=== PATIENT | female | born 1945 | race Two or more races ===

== ENCOUNTER 2017-03-31 02:59 | Inpatient (IN) | payer SELFPAY ==
[~2017-03-31] VITALS: Ht 165.1 cm; Wt 76.7 kg
[~2017-03-31 02:59] MED LIST: ASPI325T8 PO; CAPT25TA3 PO; PANT40TA5 PO; PENT400T2 PO; SUCR1TAB PO
--- NOTE | 2017-03-31 03:40 | PHYS DOC ---
Past Medical History Past Medical History: Anxiety, Cancer, GERD, Hypertension Additional Past Medical Histor: Uterine Cancer; Colitis Past Surgical History: Cholecystectomy, Hysterectomy Additional Past Surgical Histo: Hernia Alcohol Use: None Drug Use: None Adult General Chief Complaint Chief Complaint: ABDOMINAL PAIN HPI HPI Patient is a 71 year old female who presents with complaint of abdominal pain. The patient's symptoms have been worsening over the past 24 hours. The patient was recently admitted to the hospital on March 24, 2017 for treatment of what appeared to be a small bowel obstruction. After further testing, the patient was diagnosed with ileus and did not require surgical intervention. The patient' s symptoms had improved and patient was discharged on March 28, 2017. Patient states that she has had 4 episodes of vomiting today. Patient did have a bowel movement approximately one and half hours prior to arrival but states this did not help her symptoms. Patient states that the pain is throughout her abdomen but is worse in the epigastric and periumbilical areas of her belly. Patient has not taken any medications to help with her symptoms at this time. Patient rates her pain currently is 10 out of 10. Review of Systems Review of Systems Constitutional: Denies fever or chills [] Eyes: Denies change in visual acuity, redness, or eye pain [] HENT: Denies nasal congestion or sore throat [] Respiratory: Denies cough or shortness of breath [] Cardiovascular: Denies chest pain or edema[] GI: Abdominal pain, nausea, vomiting[] : Denies dysuria or hematuria [] Musculoskeletal: Denies back pain or joint pain [] Integument: Denies rash or skin lesions [] Neurologic: Denies headache, focal weakness or sensory changes [] Current Medications Current Medications Current Medications Medications (Trade) Dose Ordered Sig/[facility] Start Time Stop Time Status Last Admin Dose Admin Famotidine (Pepcid) 20 mg 1X ONCE 03/31/17 03:45 03/31/17 03:46 DC 03/31/17 03:59 20 MG Fentanyl Citrate (Fentanyl 2ml Vial) 50 mcg PRN Q15MIN PRN 03/31/17 03:45 04/01/17 03:44 03/31/17 03:59 50 MCG Ondansetron HCl (Zofran) 4 mg 1X ONCE 03/31/17 03:45 03/31/17 03:46 DC 03/31/17 03:58 4 MG Sodium Chloride 1,000 ml @ 1,000 mls/hr Q1H 03/31/17 03:45 03/31/17 04:44 DC 03/31/17 03:58 1,000 MLS/HR Allergies Allergies Allergies Coded Allergies Type Severity Reaction Last Updated Verified No Known Drug Allergies 03/24/17 No Physical Exam Physical Exam Constitutional: Alert, afebrile, appears ill. [] HENT: Normocephalic, atraumatic, bilateral external ears normal, oropharynx moist, no oral exudates, nose normal. [] Eyes: PERRLA, EOMI, conjunctiva normal, no discharge. [] Neck: Normal range of motion, no tenderness, supple, no stridor. [] Cardiovascular:Heart rate regular rhythm, no murmur [] Lungs & Thorax: Bilateral breath sounds clear to auscultation [] Abdomen: Bowel sounds normal, soft, epigastric and periumbilical tenderness to palpation, mild guarding, no rebound tenderness, no masses, no pulsatile masses. [] Skin: Warm, dry, no erythema, no rash. [] Back: No tenderness, no CVA tenderness. [] Extremities: No tenderness, no cyanosis, no clubbing, ROM intact, no edema. [] Neurologic: Alert and oriented X 3, normal motor function, normal sensory function, no focal deficits noted. [] Current Patient Data Vital Signs Vital Signs Date Time Temp Pulse Resp B/P (MAP) Pulse Ox O2 Delivery O2 Flow Rate FiO2 03/31/17 03:30 82 21 180/85 (116) 99 Room Air 03/31/17 03:10 98.2 98.2 Lab Values Laboratory Tests Test 03/31/17 03:40 03/31/17 04:32 White Blood Count 11.0 x10^3/uL (4.0-11.0) Red Blood Count 4.77 x10^6/uL (3.50-5.40) Hemoglobin 13.6 g/dL (12.0-15.5) Hematocrit 40.6 % (36.0-47.0) Mean Corpuscular Volume 85 fL (79-100) Mean Corpuscular Hemoglobin 29 pg (25-35) Mean Corpuscular Hemoglobin Concent 34 g/dL (31-37) Red Cell Distribution Width 15.4 % (11.5-14.5) H Platelet Count 242 x10^3/uL (140-400) Neutrophils (%) (Auto) 83 % (31-73) H Lymphocytes (%) (Auto) 11 % (24-48) L Monocytes (%) (Auto) 4 % (0-9) Eosinophils (%) (Auto) 1 % (0-3) Basophils (%) (Auto) 1 % (0-3) Neutrophils # (Auto) 9.1 x10^3uL (1.8-7.7) H Lymphocytes # (Auto) 1.2 x10^3/uL (1.0-4.8) Monocytes # (Auto) 0.5 x10^3/uL (0.0-1.1) Eosinophils # (Auto) 0.1 x10^3/uL (0.0-0.7) Basophils # (Auto) 0.1 x10^3/uL (0.0-0.2) Sodium Level 141 mmol/L (136-145) Potassium Level 3.7 mmol/L (3.5-5.1) Chloride Level 103 mmol/L (98-107) Carbon Dioxide Level 26 mmol/L (21-32) Anion Gap 12 (6-14) Blood Urea Nitrogen 18 mg/dL (7-20) Creatinine 0.9 mg/dL (0.6-1.0) Estimated GFR (Cockcroft-Gault) 61.5 BUN/Creatinine Ratio 20 (6-20) Glucose Level 146 mg/dL (70-99) H Calcium Level 9.7 mg/dL (8.5-10.1) Total Bilirubin 0.8 mg/dL (0.2-1.0) Aspartate Amino Transferase (AST) 24 U/L (15-37) Alanine Aminotransferase (ALT) 65 U/L (14-59) H Alkaline Phosphatase 125 U/L (46-116) H Total Protein 8.0 g/dL (6.4-8.2) Albumin 3.7 g/dL (3.4-5.0) Albumin/Globulin Ratio 0.9 (1.0-1.7) L Lipase 153 U/L (73-393) Urine Collection Type Unknown Urine Color Yellow Urine Clarity Clear Urine pH 6.0 Urine Specific [place] 1.020 Urine Protein Negative mg/dL (NEG-TRACE) Urine Glucose (UA) Negative mg/dL (NEG) Urine Ketones (Stick) Negative mg/dL (NEG) Urine Blood Negative (NEG) Urine Nitrite Negative (NEG) Urine Bilirubin Negative (NEG) Urine Urobilinogen Dipstick 0.2 mg/dL (0.2 mg/dL) Urine Leukocyte Esterase Moderate (NEG) Urine RBC Occ /HPF (0-2) Urine WBC 20-40 /HPF (0-4) Urine Squamous Epithelial Cells Mod /LPF Urine Bacteria Moderate /HPF (0-FEW) Urine Mucus Marked /LPF Laboratory Tests 03/31/17 03:40 Laboratory Tests 03/31/17 03:40 EKG EKG Interpreted by me: Heart rate 85, sinus rhythm, normal intervals, normal axis, no acute ST/T-wave abnormalities present[] Radiology/Procedures Radiology/Procedures 3 view acute abdominal series interpreted by me: No infiltrates, no effusions, normal cardiac silhouette, nonobstructive bowel gas pattern, no free air under the diaphragm[] Course & Med Decision Making Course & Med Decision Making Pertinent Labs and Imaging studies reviewed. (See chart for details) Patient given IV fluids, fentanyl, Zofran, and Pepcid. Patient had temporary improvement in symptoms, however she states she is having recurrence of nausea and pain at this time. Patient unable to tolerate any by mouth intake. Patient was found have evidence of urinary tract infection no edema feel this is the sole cause of the patient's symptoms. It is likely at the patient is having recurrence of ileus. Patient started on Rocephin for treatment of urinary tract infection. The patient will require admission to the hospital for further management. Patient admitted to Dr. Bradford. Montez Disclaimer Montez Disclaimer This electronic medical record was generated, in whole or in part, using a voice recognition dictation system. Departure Departure Impression: Primary Impression: Intractable nausea and vomiting Additional Impressions: Urinary tract infection Generalized abdominal pain Disposition: ADMITTED INPATIENT Admitting Physician: Valentín Bradford Condition: STABLE Referrals: NO PCP (PCP) Problem Qualifiers Primary Impression: Intractable nausea and vomiting Vomiting type: unspecified Qualified Codes: R11.2 - Nausea with vomiting, unspecified Additional Impressions: Urinary tract infection Urinary tract infection type: site unspecified Hematuria presence: without hematuria Qualified Codes: N39.0 - Urinary tract infection, site not specified TIFFANY ALMENDAREZ MD Mar 31, 2017 03:40
[2017-03-31] MEDS ORDERED: FAMOTIDINE 20 MG/2 ML VIAL IVP ONE (03:45)
[2017-03-31] MEDS ORDERED: IV NORMAL SALINE 1000ML BAG 1,000 ML IV SCH (03:45)
[2017-03-31] MEDS ORDERED: ONDANSETRON PF 4 MG/2 ML VIAL. IV ONE ×2 (03:45→06:00)
[2017-03-31 03:46] LABS: BASO # 0.1 x10^3/uL (0.0-0.2); BASO % 1 % (0-3); EOS % 1 % (0-3); HEMATOCRIT 40.6 % (36.0-47.0); HEMOGLOBIN 13.6 g/dL (12.0-15.5); LYMPH # 1.2 x10^3/uL (1.0-4.8); LYMPH % 11 % (24-48); MEAN CORPUSCULAR HEMOGLOBIN 29 pg (25-35); MEAN CORPUSCULAR HGB CONC 34 g/dL (31-37); MEAN CORPUSCULAR VOLUME 85 fL (79-100); MONO % 4 % (0-9); NEUT % 83 % (31-73); PLATELET COUNT 242 x10^3/uL (140-400); RED BLOOD COUNT 4.77 x10^6/uL (3.50-5.40); RED CELL DISTRIBUTION WIDTH 15.4 % (11.5-14.5)
[2017-03-31 03:58] LABS: CALCIUM 9.7 mg/dL (8.5-10.1); CREATININE 0.9 mg/dL (0.6-1.0); GFR 61.5; POTASSIUM 3.7 mmol/L (3.5-5.1)
[2017-03-31] MEDS: fentaNYL PF VIAL 100 MCG/2 ML VIAL IV PRN ×3 (03:59→08:49)
[2017-03-31 04:04] LABS: ALBUMIN 3.7 g/dL (3.4-5.0); ALBUMIN/GLOBULIN RATIO 0.9 (1.0-1.7); TOTAL BILIRUBIN 0.8 mg/dL (0.2-1.0)
[2017-03-31 04:44] LABS: BILIRUBIN,URINE NEGATIVE (NEG); GLUCOSE,URINE NEGATIVE (NEG); NITRITE,URINE NEGATIVE (NEG); PROTEIN,URINE NEGATIVE (NEG-TRACE); UROBILINOGEN,URINE 0.2 mg/dL (0.2 mg/dL)
[2017-03-31 05:06] LABS: BACTERIA,URINE MODERATE /HPF (0-FEW); RBC,URINE OCC /HPF (0-2); SQUAMOUS EPITHELIAL CELL,UR MOD /LPF; WBC,URINE 20-40 /HPF (0-4)
[2017-03-31 07:50] VITALS: BP 148/62
--- NOTE | 2017-03-31 07:50 | RAD ---
Acute abdomen series with chest, 03/31/2017: History: Abdominal pain There is mild gaseous prominence of a small bowel loop in the central abdomen. There is an overall paucity of bowel gas in the abdomen. There is a small amount of stool in the colon. There is a small amount of gas in the stomach. No free air seen in the abdomen. There is no evidence of organomegaly. The heart size and pulmonary vascularity are normal. The lungs are clear. There is no evidence of pleural fluid. IMPRESSION: There is a paucity of bowel gas in the abdomen with only mild gaseous prominence of a single small bowel loop centrally. The findings raise the possibility of small bowel obstruction or ileus. Vomiting may be contributing to this appearance.
[2017-03-31 11:36] VITALS: BP 140/60
--- NOTE | 2017-03-31 12:29 | EKG ---
[facility] [address] [place] [address] Test Date: 2017-03-31 Test Time: 03:48:09 Pat Name: BABAK KUMAR Department: Room: Gender: F Can Solderer: : 1945 Requested By: TIFFANY ALMENDRAEZ Order Number: [id number] Reading MD: Measurements Intervals [place] Rate: 85 P: 42 DE: 146 QRS: 17 QRSD: 78 T: 38 QT: 376 QTc: 453 Interpretive Statements SINUS RHYTHM NORMAL ECG RI6.01 No previous ECG available for comparison
[2017-03-31] MEDS ORDERED: METOCLOPRAMIDE HCL 10 MG/2 ML VIAL. IV PRN (12:30)
[2017-03-31] MEDS: KETOROLAC 15 MG/ML VIAL. IV PRN (13:23)
[2017-03-31 14:50] VITALS: BP 130/40
[2017-03-31 19:00] VITALS: BP 155/74
--- NOTE | 2017-03-31 19:09 | RAD ---
Indication: NG tube placement. Time of exam 5:49 PM There is an NG tube noted in the distal esophagus. NG tube is coiled back upon itself with tip directed retrograde. [place] of the loop is located at the GE junction. IMPRESSION: Malpositioned NG tube which is looped upon itself with tip directed retrograde in the mid thoracic esophagus. Electronically signed by: Lui Traylor MD (03/31/2017 7:06 PM) [facility]
--- NOTE | 2017-03-31 20:10 | RAD ---
Indication: NG tube placement. Time of exam 7:45 PM An NG tube passes below the diaphragm. The tip is likely located within the distal stomach. IMPRESSION: NG tube placement, as described. Electronically signed by: Lui Traylor MD (03/31/2017 8:07 PM) [facility]
[2017-03-31] MEDS ORDERED: BENZOCAINE ONE 20% MUCOSAL SPRAY. MM PRN (22:00)
[2017-03-31] MEDS: hydrALAZINE 20 MG/ML VIAL. IVP PRN (22:06)
[2017-03-31] MEDS: METOCLOPRAMIDE HCL 10 MG/2 ML VIAL. IV SCH (22:07)
[2017-03-31] MEDS: POTASSIUM CHLORIDE 30 MEQ in IV 1/2 NORMAL SALINE 1,000 ML IV SCH (22:16)
[2017-03-31] MEDS: PHENOL ORAL SPRAY 177ML BOTTLE. PO PRN (22:16)
--- NOTE | 2017-03-31 22:55 | HP ---
ADMIT DATE: 03/31/2017 CHIEF COMPLAINT: Abdominal pain. HISTORY OF PRESENT ILLNESS: The patient is a 71-year-old who presented to the Emergency Room with severe abdominal pain over the past 24 hours. Of note, she actually had been discharged on 03/28/2017 after a 5-day hospitalization for essentially same presentation, which was diagnosed as a small-bowel obstruction by CT. She improved at that time spontaneously, did not require any surgical intervention, but once again is now back. She denies any fevers or chills. Denies any unusual foods. Denies any diarrhea. She did have four episodes of vomiting today, had a bowel movement just prior to coming to the Emergency Room. Neither evacuation gave her any relief of the abdominal pain. Pain is worse in the periumbilical area. She does have a history of hiatal hernia and is wondering if this is related. She also has a history of TAHBSO for ovarian carcinoma in 2011. PAST MEDICAL HISTORY: Ovarian CA status post resection and radiation treatment in 2012, hypertension, colitis (radiation), cholecystectomy, hysterectomy, and GERD/hiatal hernia. FAMILY HISTORY: No other cancers. No known GI disorders. SOCIAL HISTORY: Lives with her family. No toxic habits. ALLERGIES: No known drug allergies. MEDICATIONS: MAR reviewed. The patient currently n.p.o. REVIEW OF SYSTEMS: Positive as per HPI. The patient complains of sore throat after placement of NG tube. Abdominal pain seems to be somewhat improved. Rest of organ system review is negative. PHYSICAL EXAMINATION: VITAL SIGNS: From today show a blood pressure of 140/60, heart rate of 67, respiratory rate at 20. She is afebrile. GENERAL: This is a well-nourished 71-year-old , alert and oriented, in mild discomfort due to odynophagia. HEENT: Shows no scleral icterus. NECK: Supple, without any palpable lymphadenopathy. LUNGS: Clear to auscultation bilaterally. HEART: Regular rate and rhythm. ABDOMEN: Has positive bowel sounds, soft, minimal tenderness to palpation in the periumbilical area. Midline incision is well healed. EXTREMITIES: Show no edema. SKIN: Warm, soft and dry without any rash. LABORATORY DATA: CBC from today shows a WBC of 11.0, hemoglobin 13, platelets of 242. Chemistries with a BUN and creatinine of 18 and 0.9, normal electrolytes. LFTs with an ALT of 65, which is new for her. Alkaline phosphatase minimally elevated at 125 as previously as well. Albumin at 3.7. Urine with 20-40 WBC and moderate bacteria. IMAGING STUDIES: Acute abdomen series shows "paucity" of bowel gas in the abdomen with only mild gaseous prominence in a single small bowel loop centrally, findings raised the possibility of a small-bowel obstruction or ileus. ASSESSMENT AND PLAN: The patient is a 71-year-old with apparently recurrent ileus. Etiology is somewhat unclear. We will treat her symptomatically for now. With ongoing nausea, vomiting, NG tube was placed, but is not yielding any fluids. This apparently was a difficult insertion with some blood in the tube. The patient is feeling a bit better at this time. She has been started on Reglan around the clock. We will try and avoid any constipatory medications including Zofran as possible. Pain control currently is adequate. The patient does have hypertension. With n.p.o. status, we will switch her to hydralazine p.r.n., as her blood pressure currently is borderline. We will continue to monitor. She does have a diagnosis of osteoarthritis. We will treat pain with IV medications including Toradol as needed. The patient is on pentoxifylline although I am not sure that family is aware of what the medication is. She does not describe any claudication symptoms to me. We will hold medications for the time being as it can contribute to nausea. If patient's symptoms do not improve, we will obtain surgical consult in a.m. CRAIG DODD MD DR: FELICITY/nts JOB#: [id number] / [id number] MARLON
[2017-03-31 23:00] VITALS: BP 114/58
[2017-04-01 03:00] VITALS: BP 103/51
[2017-04-01 03:49] LABS: BASO % 0 % (0-3); EOS % 1 % (0-3); HEMATOCRIT 33.6 % (36.0-47.0); HEMOGLOBIN 11.3 g/dL (12.0-15.5); LYMPH # 0.7 x10^3/uL (1.0-4.8); LYMPH % 15 % (24-48); MEAN CORPUSCULAR HEMOGLOBIN 29 pg (25-35); MEAN CORPUSCULAR HGB CONC 34 g/dL (31-37); MEAN CORPUSCULAR VOLUME 85 fL (79-100); MONO % 10 % (0-9); NEUT % 74 % (31-73); PLATELET COUNT 217 x10^3/uL (140-400); RED BLOOD COUNT 3.94 x10^6/uL (3.50-5.40); RED CELL DISTRIBUTION WIDTH 15.3 % (11.5-14.5); WHITE BLOOD COUNT 4.9 x10^3/uL (4.0-11.0)
[2017-04-01 04:05] LABS: ALBUMIN 2.7 g/dL (3.4-5.0); ALBUMIN/GLOBULIN RATIO 0.8 (1.0-1.7); CALCIUM 8.2 mg/dL (8.5-10.1); CREATININE 0.7 mg/dL (0.6-1.0); GFR 82.3; POTASSIUM 3.8 mmol/L (3.5-5.1); TOTAL BILIRUBIN 0.9 mg/dL (0.2-1.0); TOTAL PROTEIN 6.2 g/dL (6.4-8.2)
[2017-04-01] MEDS: METOCLOPRAMIDE HCL 10 MG/2 ML VIAL. IV SCH ×3 (05:50→21:52)
[2017-04-01 07:00] VITALS: BP 114/51
[2017-04-01] MEDS: PHENOL ORAL SPRAY 177ML BOTTLE. PO PRN ×3 (08:03→21:50)
[2017-04-01 11:00] VITALS: BP 116/58
--- NOTE | 2017-04-01 13:04 | PDOC ---
PROGRESS NOTES Chief Complaint Chief Complaint Ileus UTI ASSESSMENT AND PLAN: 1. Ileus: appears resolved. minimal output from NGT, abd pain improved, +BM. clamp tube, rpt KUB, d/c NGT if no fluid accumulation. 2. UTI: on empiric ceftriaxone; prelim cult with mixed amy 3. HTN: on IV hydralazine for now; restart home meds when PO re-established 4. Odynophagia: 2/2 NGT. benzocaine spray PRN History of Present Illness History of Present Illness feels much better in abd. no dysuria. c/o sore throat Vitals Vitals Vital Signs Date Time Temp Pulse Resp B/P (MAP) Pulse Ox O2 Delivery O2 Flow Rate FiO2 04/01/17 11:00 98.2 77 18 116/58 (77) 95 Room Air 98.2 Physical Exam General: Alert, Oriented X3, Cooperative, No acute distress Heart: Regular rate Lungs: Clear Abdomen: Normal bowel sounds, Soft, Other (mild TTP in upper mid abd) Extremities: No edema Skin: No rashes Labs LABS Laboratory Tests Test 04/01/17 03:35 White Blood Count 4.9 x10^3/uL (4.0-11.0) Red Blood Count 3.94 x10^6/uL (3.50-5.40) Hemoglobin 11.3 g/dL (12.0-15.5) Hematocrit 33.6 % (36.0-47.0) Mean Corpuscular Volume 85 fL (79-100) Mean Corpuscular Hemoglobin 29 pg (25-35) Mean Corpuscular Hemoglobin Concent 34 g/dL (31-37) Red Cell Distribution Width 15.3 % (11.5-14.5) Platelet Count 217 x10^3/uL (140-400) Neutrophils (%) (Auto) 74 % (31-73) Lymphocytes (%) (Auto) 15 % (24-48) Monocytes (%) (Auto) 10 % (0-9) Eosinophils (%) (Auto) 1 % (0-3) Basophils (%) (Auto) 0 % (0-3) Neutrophils # (Auto) 3.7 x10^3uL (1.8-7.7) Lymphocytes # (Auto) 0.7 x10^3/uL (1.0-4.8) Monocytes # (Auto) 0.5 x10^3/uL (0.0-1.1) Eosinophils # (Auto) 0.0 x10^3/uL (0.0-0.7) Basophils # (Auto) 0.0 x10^3/uL (0.0-0.2) Sodium Level 142 mmol/L (136-145) Potassium Level 3.8 mmol/L (3.5-5.1) Chloride Level 109 mmol/L (98-107) Carbon Dioxide Level 25 mmol/L (21-32) Anion Gap 8 (6-14) Blood Urea Nitrogen 19 mg/dL (7-20) Creatinine 0.7 mg/dL (0.6-1.0) Estimated GFR (Cockcroft-Gault) 82.3 BUN/Creatinine Ratio 27 (6-20) Glucose Level 106 mg/dL (70-99) Calcium Level 8.2 mg/dL (8.5-10.1) Total Bilirubin 0.9 mg/dL (0.2-1.0) Aspartate Amino Transf (AST/SGOT) 15 U/L (15-37) Alanine Aminotransferase (ALT/SGPT) 41 U/L (14-59) Alkaline Phosphatase 86 U/L (46-116) Total Protein 6.2 g/dL (6.4-8.2) Albumin 2.7 g/dL (3.4-5.0) Albumin/Globulin Ratio 0.8 (1.0-1.7) CRAIG DODD MD Apr 01, 2017 13:04
[2017-04-01] MEDS: POTASSIUM CHLORIDE 30 MEQ in IV 1/2 NORMAL SALINE 1,000 ML IV SCH (14:13)
--- NOTE | 2017-04-01 15:28 | RAD ---
Indication abdominal pain. Small bowel obstruction. A single KUB was obtained. Comparison is made to an examination yesterday. Note is made of a small bowel series 5 days ago. There is some gas in minimally dilated loops of small bowel in the midabdomen which is nonspecific. Some gas is seen in the right and transverse colon as well as the rectosigmoid. A nasogastric tube is noted with its tip in the antrum of the stomach. IMPRESSION: Appropriately positioned nasogastric tube High-grade mechanical obstruction is not suggested on this exam. Gas is seen in the large bowel.
[2017-04-01 15:36] VITALS: BP 145/66
[2017-04-01 19:00] VITALS: BP 140/69
[2017-04-01] MEDS: KETOROLAC 15 MG/ML VIAL. IV PRN (22:00)
[2017-04-01 23:00] VITALS: BP 134/63
[2017-04-02] VITALS (7 sets, daily range): BP systolic 125–159; BP diastolic 54–64
[2017-04-02] MEDS: POTASSIUM CHLORIDE 30 MEQ in IV 1/2 NORMAL SALINE 1,000 ML IV SCH ×2 (03:57→14:05)
[2017-04-02 04:52] LABS: BASO % 0 % (0-3); EOS % 3 % (0-3); HEMATOCRIT 33.2 % (36.0-47.0); HEMOGLOBIN 11.3 g/dL (12.0-15.5); LYMPH # 0.9 x10^3/uL (1.0-4.8); LYMPH % 19 % (24-48); MEAN CORPUSCULAR HEMOGLOBIN 29 pg (25-35); MEAN CORPUSCULAR HGB CONC 34 g/dL (31-37); MEAN CORPUSCULAR VOLUME 85 fL (79-100); MONO % 11 % (0-9); NEUT % 67 % (31-73); PLATELET COUNT 194 x10^3/uL (140-400); RED CELL DISTRIBUTION WIDTH 15.7 % (11.5-14.5); WHITE BLOOD COUNT 4.7 x10^3/uL (4.0-11.0)
[2017-04-02 05:49] LABS: ALBUMIN 2.6 g/dL (3.4-5.0); ALBUMIN/GLOBULIN RATIO 0.7 (1.0-1.7); CALCIUM 8.7 mg/dL (8.5-10.1); CREATININE 0.5 mg/dL (0.6-1.0); GFR 121.3; POTASSIUM 3.7 mmol/L (3.5-5.1); TOTAL PROTEIN 6.1 g/dL (6.4-8.2)
[2017-04-02] MEDS: METOCLOPRAMIDE HCL 10 MG/2 ML VIAL. IV SCH ×3 (06:50→21:05)
[2017-04-02] MEDS: PHENOL ORAL SPRAY 177ML BOTTLE. PO PRN ×3 (06:54→11:52)
[2017-04-02] MEDS: hydrALAZINE 20 MG/ML VIAL. IVP PRN ×2 (11:53→21:04)
[2017-04-02] MEDS: KETOROLAC 15 MG/ML VIAL. IV PRN (14:06)
--- NOTE | 2017-04-02 14:22 | PDOC ---
PROGRESS NOTES Chief Complaint Chief Complaint Ileus UTI ASSESSMENT AND PLAN: 1. Ileus: appears resolved. minimal output from NGT, abd pain improved, +BM. NGT d/c.ed. start clear liquids 2. UTI: on empiric ceftriaxone; cult with mixed amy. stop Abx 3. HTN: on IV hydralazine for now; restart home meds when PO re-established 4. Odynophagia: 2/2 NGT. benzocaine spray PRN History of Present Illness History of Present Illness no abd pain or distension. no dysuria. c/o sore throat Vitals Vitals Vital Signs Date Time Temp Pulse Resp B/P (MAP) Pulse Ox O2 Delivery O2 Flow Rate FiO2 04/02/17 11:53 71 140/60 04/02/17 11:00 97.1 20 96 Room Air 97.1 Physical Exam General: Alert, Oriented X3, Cooperative, No acute distress Heart: Regular rate Lungs: Clear Abdomen: Normal bowel sounds, Soft, No tenderness Extremities: No edema Skin: No rashes Labs LABS Laboratory Tests Test 04/02/17 04:25 White Blood Count 4.7 x10^3/uL (4.0-11.0) Red Blood Count 3.90 x10^6/uL (3.50-5.40) Hemoglobin 11.3 g/dL (12.0-15.5) Hematocrit 33.2 % (36.0-47.0) Mean Corpuscular Volume 85 fL (79-100) Mean Corpuscular Hemoglobin 29 pg (25-35) Mean Corpuscular Hemoglobin Concent 34 g/dL (31-37) Red Cell Distribution Width 15.7 % (11.5-14.5) Platelet Count 194 x10^3/uL (140-400) Neutrophils (%) (Auto) 67 % (31-73) Lymphocytes (%) (Auto) 19 % (24-48) Monocytes (%) (Auto) 11 % (0-9) Eosinophils (%) (Auto) 3 % (0-3) Basophils (%) (Auto) 0 % (0-3) Neutrophils # (Auto) 3.2 x10^3uL (1.8-7.7) Lymphocytes # (Auto) 0.9 x10^3/uL (1.0-4.8) Monocytes # (Auto) 0.5 x10^3/uL (0.0-1.1) Eosinophils # (Auto) 0.1 x10^3/uL (0.0-0.7) Basophils # (Auto) 0.0 x10^3/uL (0.0-0.2) Sodium Level 141 mmol/L (136-145) Potassium Level 3.7 mmol/L (3.5-5.1) Chloride Level 106 mmol/L (98-107) Carbon Dioxide Level 26 mmol/L (21-32) Anion Gap 9 (6-14) Blood Urea Nitrogen 11 mg/dL (7-20) Creatinine 0.5 mg/dL (0.6-1.0) Estimated GFR (Cockcroft-Gault) 121.3 BUN/Creatinine Ratio 22 (6-20) Glucose Level 80 mg/dL (70-99) Calcium Level 8.7 mg/dL (8.5-10.1) Total Bilirubin 1.0 mg/dL (0.2-1.0) Aspartate Amino Transf (AST/SGOT) 16 U/L (15-37) Alanine Aminotransferase (ALT/SGPT) 30 U/L (14-59) Alkaline Phosphatase 80 U/L (46-116) Total Protein 6.1 g/dL (6.4-8.2) Albumin 2.6 g/dL (3.4-5.0) Albumin/Globulin Ratio 0.7 (1.0-1.7) CRAIG DODD MD Apr 02, 2017 14:22
[2017-04-03] MEDS: POTASSIUM CHLORIDE 30 MEQ in IV 1/2 NORMAL SALINE 1,000 ML IV SCH ×2 (01:33→12:56)
[2017-04-03 03:00] VITALS: BP 134/61
[2017-04-03 04:28] LABS: BASO % 0 % (0-3); EOS % 3 % (0-3); HEMATOCRIT 34.5 % (36.0-47.0); HEMOGLOBIN 11.9 g/dL (12.0-15.5); LYMPH # 0.9 x10^3/uL (1.0-4.8); LYMPH % 16 % (24-48); MEAN CORPUSCULAR HEMOGLOBIN 29 pg (25-35); MEAN CORPUSCULAR HGB CONC 34 g/dL (31-37); MEAN CORPUSCULAR VOLUME 84 fL (79-100); MONO % 11 % (0-9); NEUT % 71 % (31-73); PLATELET COUNT 211 x10^3/uL (140-400); RED CELL DISTRIBUTION WIDTH 15.3 % (11.5-14.5); WHITE BLOOD COUNT 5.6 x10^3/uL (4.0-11.0)
[2017-04-03 04:48] LABS: ALBUMIN 2.8 g/dL (3.4-5.0); ALBUMIN/GLOBULIN RATIO 0.7 (1.0-1.7); CALCIUM 8.6 mg/dL (8.5-10.1); CREATININE 0.6 mg/dL (0.6-1.0); GFR 98.3; TOTAL BILIRUBIN 0.8 mg/dL (0.2-1.0); TOTAL PROTEIN 6.6 g/dL (6.4-8.2)
[2017-04-03] MEDS: METOCLOPRAMIDE HCL 10 MG/2 ML VIAL. IV SCH ×2 (05:42→14:38)
[2017-04-03 07:00] VITALS: BP 134/51
[2017-04-03] MEDS: PHENOL ORAL SPRAY 177ML BOTTLE. PO PRN (09:25)
[2017-04-03 11:00] VITALS: BP 131/53
--- NOTE | 2017-04-03 11:35 | PDOC ---
PROGRESS NOTES Chief Complaint Chief Complaint Ileus UTI ASSESSMENT AND PLAN: 1. Ileus: appears resolved. minimal output from NGT, abd pain improved, +BM. tolerating PO. 2. UTI: on empiric ceftriaxone; cult with mixed amy. stop Abx 3. HTN: restart home meds 4. dizziness: suspect 2/2 being bedridden for several day. eval PT/OT 5. Dispo: prob D/C today History of Present Illness History of Present Illness no abd pain or distension. no dysuria. c/o sore throat Vitals Vitals Vital Signs Date Time Temp Pulse Resp B/P (MAP) Pulse Ox O2 Delivery O2 Flow Rate FiO2 04/03/17 11:00 99.0 82 18 131/53 (79) 94 Room Air 99.0 Physical Exam General: Alert, Oriented X3, Cooperative, No acute distress Heart: Regular rate Lungs: Clear Abdomen: Normal bowel sounds, Soft, No tenderness Extremities: No edema Skin: No rashes Labs LABS Laboratory Tests Test 04/03/17 03:25 White Blood Count 5.6 x10^3/uL (4.0-11.0) Red Blood Count 4.10 x10^6/uL (3.50-5.40) Hemoglobin 11.9 g/dL (12.0-15.5) Hematocrit 34.5 % (36.0-47.0) Mean Corpuscular Volume 84 fL (79-100) Mean Corpuscular Hemoglobin 29 pg (25-35) Mean Corpuscular Hemoglobin Concent 34 g/dL (31-37) Red Cell Distribution Width 15.3 % (11.5-14.5) Platelet Count 211 x10^3/uL (140-400) Neutrophils (%) (Auto) 71 % (31-73) Lymphocytes (%) (Auto) 16 % (24-48) Monocytes (%) (Auto) 11 % (0-9) Eosinophils (%) (Auto) 3 % (0-3) Basophils (%) (Auto) 0 % (0-3) Neutrophils # (Auto) 4.0 x10^3uL (1.8-7.7) Lymphocytes # (Auto) 0.9 x10^3/uL (1.0-4.8) Monocytes # (Auto) 0.6 x10^3/uL (0.0-1.1) Eosinophils # (Auto) 0.1 x10^3/uL (0.0-0.7) Basophils # (Auto) 0.0 x10^3/uL (0.0-0.2) Sodium Level 138 mmol/L (136-145) Potassium Level 4.0 mmol/L (3.5-5.1) Chloride Level 105 mmol/L (98-107) Carbon Dioxide Level 25 mmol/L (21-32) Anion Gap 8 (6-14) Blood Urea Nitrogen 8 mg/dL (7-20) Creatinine 0.6 mg/dL (0.6-1.0) Estimated GFR (Cockcroft-Gault) 98.3 BUN/Creatinine Ratio 13 (6-20) Glucose Level 82 mg/dL (70-99) Calcium Level 8.6 mg/dL (8.5-10.1) Total Bilirubin 0.8 mg/dL (0.2-1.0) Aspartate Amino Transf (AST/SGOT) 12 U/L (15-37) Alanine Aminotransferase (ALT/SGPT) 29 U/L (14-59) Alkaline Phosphatase 87 U/L (46-116) Total Protein 6.6 g/dL (6.4-8.2) Albumin 2.8 g/dL (3.4-5.0) Albumin/Globulin Ratio 0.7 (1.0-1.7) CRAIG DODD MD Apr 03, 2017 11:35
[2017-04-03 15:48] VITALS: BP 136/47
[2017-04-03] MEDS ORDERED: HYDR-971 PO (16:29)
[2017-04-03] MEDS ORDERED: IBUP-1027 PO (16:29)
--- NOTE | 2017-04-05 15:00 | DS ---
DATE OF DISCHARGE: 04/03/2017 CHIEF COMPLAINT: Ileus, UTI. HOSPITAL COURSE: The patient was admitted with abdominal pain, nausea, vomiting. In the Emergency Room, x-rays were consistent with ileus. She was therefore kept n.p.o. and was not responding to antiemetics, NG tube was placed. Following day abdominal pain and symptoms had resolved. She had bowel movements, NG-tube was discontinued and clear liquids were started. She tolerated this and nutrition was advanced to a GI bland diet. In the Emergency Room, she was found with a urinary analysis showing signs of infection. She was therefore started on empiric ceftriaxone. Culture actually grew out a normal amy. Antibiotics were stopped after 3 days. DISCHARGE DATE: 04/03/2017 DISCHARGE DIAGNOSIS: Ileus. DISCHARGE DISPOSITION: To home. DISCHARGE CONDITION: Improved. DISCHARGE MEDICATIONS: Please refer to MAR. DISCHARGE INSTRUCTIONS: The patient will follow up with PCP in 1-2 weeks. CRAIG DODD MD DR: FELICITY/nts JOB#: [id number] / [id number]
== END 2017-04-03 17:30 | disposition home or self-care (01) | DRG 389 ==
LOC: ER 02:59 → 6 SOUTH 05:19 → 5 SOUTH 17:32
PROVIDERS: ADMIT Internal Medicine; ATTEND Internal Medicine
PROC: 0DH67UZ Insertion of Feeding Device into Stomach, Via Natural or Artificial Opening (ICD-10-PCS; principal; 2017-03-31)
PROC: 0DP6XUZ Removal of Feeding Device from Stomach, External Approach (ICD-10-PCS; 2017-03-31)
DX: K56.7 Ileus, unspecified (principal); N39.0 Urinary tract infection, site not specified; I10 Essential (primary) hypertension; K21.9 Gastro-esophageal reflux disease without esophagitis; M19.90 Unspecified osteoarthritis, unspecified site; Z85.42 Personal history of malignant neoplasm of other parts of uterus; Z85.43 Personal history of malignant neoplasm of ovary; Z90.710 Acquired absence of both cervix and uterus; F41.9 Anxiety disorder, unspecified; Z90.49 Acquired absence of other specified parts of digestive tract; R13.19 Other dysphagia
CPT/HCPCS: 36415; 74000; 74022; 80053; 81001; 83690; 85025; 87086; 93005; 96374; 96375; 96376; J0360; J0696; J1885; J2060; J2405; J2765; J3010; J7030; S0028; 99285-25